=== PATIENT | male | born 1980 | race Caucasian/White ===

== ENCOUNTER 2024-12-18 03:13 | Emergency (ER) | payer OTHER ==
[2024-12-18 03:33] LABS: Glucose, Urine (Dipstick) Normal (Negative); Leukocyte 500 (Negative); Protein, Urine (Dipstick) 30 mg/dl (Neg-Trace); Specific Gravity, Urine 1.010 (1.005-1.030)
[2024-12-18 03:39] LABS: Bacteria/HPF None Seen HPF (None Seen); CAUTI Indications for Culture Pelvic or flank pain; WBC/HPF Greater than 50 HPF (0-3)
[2024-12-18 03:40] LABS: Urine Culture Reflex Yes Yes
[2024-12-18] MEDS ORDERED: HYDROcodone/Acetaminophen 5/325 mg Tablet ONE (03:42)
[2024-12-18] MEDS ORDERED: Ketorolac Tromethamine 30 MG (1 mL) VIAL ONE (04:17)
== END 2024-12-18 04:51 | disposition home or self-care (01) ==
LOC: CSHERS 03:13
DX: N39.0 Urinary tract infection, site not specified (principal); N50.811 Right testicular pain; F17.290 Nicotine dependence, other tobacco product, uncomplicated
CPT/HCPCS: 76870; 81001; 87077; 87086; 87186; 93976; 96372; 99284; J1885